=== PATIENT | female | born 2000 | race Native Hawaiian/Other Pacific Islander ===

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

== ENCOUNTER 2021-05-31 12:11 | Outpatient (CLI) | payer OTHER ==
[2021-05-31 12:32] LABS: PLATELET COUNT 270 K/uL (152-353)
[2021-05-31 12:52] LABS: POTASSIUM 4.4 mmol/L (3.6-5.2)
== END 2021-05-31 18:52 | disposition home or self-care (01) ==
LOC: LABW 12:11 → LAB 12:11 → LABW 18:52
PROVIDERS: ATTEND Nurse Practitioner Family
DX: G44.89 Other headache syndrome (principal); N92.0 Excessive and frequent menstruation with regular cycle
CPT/HCPCS: 36415; 80053; 84439; 84443; 85027

== ENCOUNTER 2022-06-28 11:58 | Outpatient (CLI) | payer OTHER | END 2022-06-28 19:29 | disposition home or self-care (01) | LOC: RAD 11:58 | PROVIDERS: ATTEND Nurse Practitioner Family | DX: M54.59 Other low back pain (principal) ==